=== PATIENT | male | born 2000 | race Hispanic/Latino ===

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

== ENCOUNTER 2021-02-04 01:02 | Inpatient (IN) | payer MEDICAID ==
[2021-02-04] VITALS (7 sets, daily range): BP systolic 100–135; BP diastolic 49–64
[~2021-02-04] VITALS: Ht 175.3 cm; Wt 75.1 kg
[2021-02-04] MEDS ORDERED: DiphenhydrAMINE HCL 50 MG/ML VIAL ONE (01:25)
[2021-02-04] MEDS ORDERED: FAMOTIDINE/PF 20 MG/2 ML VIAL IV ONE ×2 (01:26→08:39)
[2021-02-04] MEDS ORDERED: INSULIN HUMULIN R 100 UNIT/ML 3ML ONE ×2 (01:38→08:40)
[2021-02-04] MEDS ORDERED: SODIUM CHLORIDE 0.9% 1000ML 1,000 ML IV ONE ×3 (01:39→08:38)
[2021-02-04 01:46] LABS: BASOPHILS % (AUTO) 0.1 % (0.0-5.0); EOSINOPHILS % (AUTO) 0.5 % (0.0-8.0); HEMATOCRIT 49.3 % (42-54); LYMPHOCYTES % (AUTO) 62.3 % (21.0-51.0); MEAN CORPUSCULAR HEMOGLOBIN 30.4 pg (27.0-33.0); MEAN CORPUSCULAR HGB CONC 36.9 g/dL (32.0-36.0); MEAN CORPUSCULAR VOLUME 82.3 fL (80-100); MONOCYTES % (AUTO) 4.3 % (3.0-13.0); NEUTROPHILS % (AUTO) 32.4 % (40.0-77.0); PLATELET COUNT (AUTO) 356 K/uL (130-400); RED BLOOD CELL COUNT(AUTO) 5.99 MIL/uL (4.50-6.20); RED CELL DISTRIBUTION WIDTH 11.8 % (11.0-15.5); WHITE BLOOD COUNT (AUTO) 7.7 K/uL (4.8-10.8)
[2021-02-04 02:18] LABS: BAND NEUTROPHILS % (MANUAL) 2 % (0-2); EOSINOPHILS % (MANUAL) 2 % (1-6); LYMPHOCYTES % (MANUAL) 54 % (22-44); MAN.DIFF COMMENT-IMPRESSION MANUAL DIFFERENTIAL; MONOCYTES % (MANUAL) 4 % (2-9); PLATELET MORPHOLOGY COMMENT ADEQUATE; REACTIVE LYMPHOCYTES 4 % (0-0); SEGMENTED NEUTROPHILS % 34 % (40-70)
[2021-02-04 02:20] LABS: POTASSIUM 3.7 mmol/L (3.5-5.1)
[2021-02-04 02:21] LABS: CREATININE 1.2 mg/dL (0.5-1.5); PHOSPHORUS 5.8 mg/dL (2.5-4.9)
[2021-02-04 02:22] LABS: BILIRUBIN,TOTAL 0.7 mg/dL (0.2-1.0); MAGNESIUM 1.8 mg/dL (1.80-2.40); TOTAL PROTEIN, SERUM 6.6 g/dL (6.0-8.3)
[2021-02-04 02:23] LABS: ALBUMIN 4.2 g/dL (3.5-5.0)
[2021-02-04 02:45] LABS: APPEARANCE,URINE Clear (CLEAR); BILIRUBIN,URINE Negative (NEGATIVE); COLOR,URINE Yellow (YELLOW); GLUCOSE, URINE (UA) >=1000 mg/dL (NEGATIVE); KETONES,URINE >=80 mg/dL (NEGATIVE); LEUKOCYTE ESTERASE ,URINE Negative (NEGATIVE); NITRATE,URINE Negative (NEGATIVE); OCCULT BLOOD,URINE Negative (NEGATIVE); PROTEIN,URINE Negative (NEGATIVE); UROBILINOGEN,URINE 0.2 mg/dL (0.2-1.0)
[2021-02-04 02:51] LABS: BACTERIA,URINE None Seen /HPF (None Seen); RBC,URINE None Seen /HPF (0-1); SQUAMOUS EPITHELIAL CELL,UR Rare /HPF (0-2); WBC,URINE None Seen /HPF (0-1); YEAST,URINE BUDDING None Seen /HPF (None Seen)
[2021-02-04] MEDS ORDERED: GLUCAGON 1MG KIT 1 MG ML IM PRN (05:30)
[2021-02-04] MEDS ORDERED: DEXTROSE 50%-WATER 50 ML DISP.SYRIN IV PRN (05:30)
[2021-02-04 05:57] LABS: CREATININE 0.9 mg/dL (0.5-1.5); POTASSIUM 4.6 mmol/L (3.5-5.1)
[2021-02-04] MEDS ORDERED: ACETAMINOPHEN 325 MG TAB PO PRN (06:00)
[2021-02-04] MEDS: INSULIN HUMULIN R 100 UNIT/ML 3ML SQ SCH ×4 (06:00→23:14)
[2021-02-04] MEDS ORDERED: ACETAMINOPHEN-CODEINE 300/30MG TAB PO PRN (06:00)
[2021-02-04] MEDS ORDERED: ONDANSETRON HCL 4 MG/2 ML VIAL IV PRN (06:00)
[2021-02-04] MEDS ORDERED: MORPHINE SULFATE 4 MG/1ML SYG IV PRN (06:00)
[2021-02-04] MEDS ORDERED: LACTULOSE 20 GM/30 ML UDCUP PO PRN (06:00)
[2021-02-04] MEDS: SODIUM CHLORIDE 0.9% 1000ML 1,000 ML IV SCH ×6 (06:00→23:13)
[2021-02-04 07:14] LABS: ABG OXYGEN SATURATION 92.5 % (95.0-99.0); BASE EXCESS,VENOUS BLOOD GAS -5.3 (-2.0-3.0); PCO2,VENOUS BLOOD GAS 39 (35-48); PH,VENOUS BLOOD GAS 7.332 (7.350-7.450)
[2021-02-04 07:14] LABS: ABG OXYGEN SATURATION 92.9 % (95.0-99.0); HCO3,VENOUS BLOOD GAS 19.4 (21.0-28.0); PCO2,VENOUS BLOOD GAS 42 (35-48)
[2021-02-04] MEDS ORDERED: SODIUM CHLORIDE 0.9% 1000ML 1,000 ML IV SCH (08:15)
[2021-02-04] MEDS ORDERED: INSULIN HUMULIN R 100 UNIT/ML 3ML IV SCH (08:15)
[2021-02-04] MEDS ORDERED: POTASSIUM CHLORIDE 10MEQ/100ML 100 ML IV PRN (08:15)
[2021-02-04] MEDS ORDERED: DEXTROSE 5 %-0.45 % NACL 1,000 ML IV PRN (08:15)
[2021-02-04] MEDS ORDERED: ENOXAPARIN SODIUM 40 MG/0.4 ML SYRINGE SQ ONE (08:38)
[2021-02-04] MEDS: FAMOTIDINE/PF 20 MG/2 ML VIAL IV SCH ×2 (09:00→20:06)
[2021-02-04] MEDS: ENOXAPARIN SODIUM 40 MG/0.4 ML SYRINGE SQ SCH (09:00)
[2021-02-04 09:01] LABS: CREATININE 0.8 mg/dL (0.5-1.5); MAGNESIUM 1.6 mg/dL (1.80-2.40); POTASSIUM 3.9 mmol/L (3.5-5.1)
[2021-02-04] MEDS ORDERED: INSULIN REGULAR, HUMAN 3ML 100 UNIT in SODIUM CHLORIDE 0.9% 99 ML IV PRN ×2 (09:15)
[2021-02-04 09:42] LABS: ABG BASE EXCESS -9.5 mmol/L (-2.0-3.0); ABG HCO3 15.7 mmol/L (21.0-28.0); ABG OXYGEN SATURATION 96.3 % (95.0-99.0); ABG PCO2 33 mmHg (35-48)
[2021-02-04 10:45] LABS: HEMOGLOBIN A1C > 12.8 % (4.0-6.0)
[2021-02-04] MEDS ORDERED: DEXTROSE 5 %-0.45 % NACL 1,000 ML IV ONE (13:37)
[2021-02-04 14:21] LABS: ABG BASE EXCESS -7.7 mmol/L (-2.0-3.0); ABG PCO2 33 mmHg (35-48)
[2021-02-04 14:24] LABS: CREATININE 0.8 mg/dL (0.5-1.5); MAGNESIUM 1.6 mg/dL (1.80-2.40); POTASSIUM 3.6 mmol/L (3.5-5.1)
[2021-02-04] MEDS ORDERED: MAGNESIUM 2GM PREMIX 50ML 50 ML IV ONE (15:57)
[2021-02-04] MEDS ORDERED: SODIUM CHLORIDE 0.9% 50 ML IV ONE (15:57)
[2021-02-04] MEDS ORDERED: MAGNESIUM 2GM PREMIX 50ML 50 ML IV PRN (16:30)
[2021-02-04 16:32] LABS: AMYLASE 40 U/L (25-115)
[2021-02-04 16:33] LABS: LIPASE 31 U/L (114-286)
[2021-02-04] MEDS ORDERED: INSLAN SQ (18:36)
[2021-02-04] MEDS ORDERED: INSNOV SQ (18:36)
[2021-02-04] MEDS: DEXTROSE 5 %-0.45 % NACL 1,000 ML IV SCH ×2 (18:46→23:13)
[2021-02-04 19:47] LABS: MAGNESIUM 1.8 mg/dL (1.80-2.40); POTASSIUM 3.8 mmol/L (3.5-5.1)
[2021-02-04 20:28] LABS: ABG BASE EXCESS -7.4 mmol/L (-2.0-3.0); ABG HCO3 15.5 mmol/L (21.0-28.0); ABG OXYGEN SATURATION 97.9 % (95.0-99.0); ABG PCO2 26 mmHg (35-48)
[2021-02-04] MEDS ORDERED: INSULIN GLARGINE 100 UNITS/ML 10 ML VIAL SQ SCH (21:00)
[2021-02-05] VITALS (15 sets, daily range): BP systolic 93–138; BP diastolic 55–73
[2021-02-05 00:15] LABS: ABG OXYGEN SATURATION 74.3 % (95.0-99.0); BASE EXCESS,VENOUS BLOOD GAS -5.9 (-2.0-3.0); HCO3,VENOUS BLOOD GAS 18.8 (21.0-28.0); PCO2,VENOUS BLOOD GAS 35 (35-48); PH,VENOUS BLOOD GAS 7.349 (7.350-7.450)
[2021-02-05] MEDS: SODIUM CHLORIDE 0.9% 1000ML 1,000 ML IV SCH ×4 (02:00→11:10)
[2021-02-05 04:14] LABS: AMYLASE 42 U/L (25-115); CARBON DIOXIDE 23 mmol/L (21-32); CHLORIDE 103 mmol/L (101-111); CHOLESTEROL 201 mg/dL (<200); CREATININE 0.9 mg/dL (0.5-1.5); GLOMERULAR FILTR. RATE CALC 116 mL/min (>60); GLUCOSE,RANDOM 217 mg/dL (70-105); HDL CHOLESTEROL 30 mg/dL (29-71); LDL DIRECT 43 mg/dL (0-99); POTASSIUM 3.2 mmol/L (3.5-5.1); SODIUM SERUM 137 mmol/L (136-145); TRIGLYCERIDES 612 mg/dL (30-200); UREA NITROGEN, BLOOD 5 mg/dL (7-18)
[2021-02-05 04:18] LABS: LIPASE < 50 U/L (114-286)
[2021-02-05 04:25] LABS: BASE EXCESS,VENOUS BLOOD GAS -8.9 (-2.0-3.0); HCO3,VENOUS BLOOD GAS 15.8 (21.0-28.0); PCO2,VENOUS BLOOD GAS 31 (35-48)
[2021-02-05] MEDS: INSULIN HUMULIN R 100 UNIT/ML 3ML SQ SCH ×5 (05:40→21:13)
[2021-02-05] MEDS: FAMOTIDINE/PF 20 MG/2 ML VIAL IV SCH ×2 (07:31→20:55)
[2021-02-05] MEDS: DEXTROSE 5 %-0.45 % NACL 1,000 ML IV SCH (07:32)
[2021-02-05] MEDS: ENOXAPARIN SODIUM 40 MG/0.4 ML SYRINGE SQ SCH (07:32)
[2021-02-05] MEDS ORDERED: MAGNESIUM 2GM PREMIX 50ML 50 ML IV SCH (12:00)
[2021-02-05] MEDS: POTASSIUM CHLORIDE 20 MEQ ERTAB PO SCH (12:11)
[2021-02-05] MEDS ORDERED: INSULIN GLARGINE 100 UNITS/ML 10 ML VIAL SQ SCH (21:00)
[2021-02-05] MEDS ORDERED: ATORVASTATIN CALCIUM 40 MG TABLET PO SCH (21:00)
[2021-02-06 04:29] VITALS: BP 109/72
[2021-02-06] MEDS: INSULIN HUMULIN R 100 UNIT/ML 3ML SQ SCH ×4 (05:32→12:21)
[2021-02-06] MEDS: FAMOTIDINE/PF 20 MG/2 ML VIAL IV SCH (08:13)
[2021-02-06] MEDS: ENOXAPARIN SODIUM 40 MG/0.4 ML SYRINGE SQ SCH (08:18)
[2021-02-06 08:37] VITALS: BP 97/57
[2021-02-06] MEDS ORDERED: FENOFIBRATE NANOCRYSTALLIZED 145 MG TAB PO SCH (09:00)
[2021-02-06 09:18] LABS: BASOPHILS % (AUTO) 0.3 % (0.0-5.0); EOSINOPHILS % (AUTO) 1.4 % (0.0-8.0); HEMATOCRIT 48.1 % (42-54); LYMPHOCYTES % (AUTO) 46.2 % (21.0-51.0); MEAN CORPUSCULAR HEMOGLOBIN 29.1 pg (27.0-33.0); MEAN CORPUSCULAR HGB CONC 34.1 g/dL (32.0-36.0); MEAN CORPUSCULAR VOLUME 85.3 fL (80-100); MONOCYTES % (AUTO) 8.1 % (3.0-13.0); NEUTROPHILS % (AUTO) 43.7 % (40.0-77.0); PLATELET COUNT (AUTO) 194 K/uL (130-400); RED BLOOD CELL COUNT(AUTO) 5.64 MIL/uL (4.50-6.20); RED CELL DISTRIBUTION WIDTH 12.6 % (11.0-15.5); WHITE BLOOD COUNT (AUTO) 3.6 K/uL (4.8-10.8)
[2021-02-06 09:34] LABS: ALBUMIN 3.5 g/dL (3.5-5.0); BILIRUBIN,TOTAL 0.4 mg/dL (0.2-1.0); CREATININE 0.8 mg/dL (0.5-1.5); MAGNESIUM 1.8 mg/dL (1.80-2.40); POTASSIUM 3.8 mmol/L (3.5-5.1); TOTAL PROTEIN, SERUM 6.3 g/dL (6.0-8.3)
[2021-02-06 11:27] VITALS: BP 106/67
[2021-02-06] MEDS: POTASSIUM CHLORIDE 20 MEQ ERTAB PO SCH (12:00)
[2021-02-06] MEDS ORDERED: INSU100I3 SQ (13:50)
[2021-02-06] MEDS ORDERED: FENO145T PO (13:50)
[2021-02-06] MEDS ORDERED: ATOR40TA69 PO (13:50)
== END 2021-02-06 14:50 | disposition home or self-care (01) | DRG 420 ==
LOC: EDH 01:02 → EDHIP 05:47 → 2DH 17:12 → 3DH 02-05 12:50
PROVIDERS: ADMIT Internal Medicine; ATTEND Internal Medicine
DX: E10.10 Type 1 diabetes mellitus with ketoacidosis without coma (principal); E87.8 Other disorders of electrolyte and fluid balance, not elsewhere classified; E87.1 Hypo-osmolality and hyponatremia; E78.1 Pure hyperglyceridemia; J45.909 Unspecified asthma, uncomplicated; E86.0 Dehydration; E86.1 Hypovolemia; L27.2 Dermatitis due to ingested food; Z79.4 Long term (current) use of insulin
CPT/HCPCS: 36415; 36600; 80048; 80053; 80061; 81001; 82010; 82150; 82435; 82803; 82947; 82948; 83036; 83605; 83690; 83735; 84100; 84132; 84295; 84484; 85018; 85025; G0378; J1200; J1650; J1815; J3475; J3490; J7030; J7042

== ENCOUNTER 2021-06-07 06:31 | Emergency (ER) | payer BC, MEDICAID ==
[~2021-06-07] VITALS: Ht 177.8 cm; Wt 72.6 kg
[~2021-06-07 06:31] MED LIST: ATOR40TA69 PO; FENO145T PO; INSLAN SQ; INSU100I3 SQ
[2021-06-07 06:32] VITALS: BP 158/97
[2021-06-07 06:59] VITALS: BP 144/100
[2021-06-07] MEDS ORDERED: LACTATED RINGERS 1000ML 1,000 ML IV SCH ×3 (07:00→14:00)
[2021-06-07] MEDS ORDERED: INSULIN HUMULIN R 100 UNIT/ML 3ML IV SCH (07:09)
[2021-06-07 07:29] LABS: BASOPHILS % (AUTO) 0.2 % (0.0-5.0); EOSINOPHILS % (AUTO) 0.3 % (0.0-8.0); HEMATOCRIT 56.1 % (42-54); MEAN CORPUSCULAR HEMOGLOBIN 28.9 pg (27.0-33.0); MEAN CORPUSCULAR HGB CONC 35.3 g/dL (32.0-36.0); MONOCYTES % (AUTO) 4.9 % (3.0-13.0); NEUTROPHILS % (AUTO) 66.2 % (40.0-77.0); PLATELET COUNT (AUTO) 296 K/uL (130-400); RED BLOOD CELL COUNT(AUTO) 6.84 MIL/uL (4.50-6.20); RED CELL DISTRIBUTION WIDTH 11.9 % (11.0-15.5); WHITE BLOOD COUNT (AUTO) 8.9 K/uL (4.8-10.8)
[2021-06-07] MEDS ORDERED: PANTOPRAZOLE 40 MG/VIAL IVP SCH (07:30)
[2021-06-07] MEDS ORDERED: ONDANSETRON 4MG INJ IVP SCH (07:30)
[2021-06-07 07:58] LABS: ALANINE AMINOTRANSFERASE 22 U/L (12-78); ALBUMIN 4.7 g/dL (3.5-5.0); ASPARTATE AMINOTRANSFERASE 17 U/L (10-37); BILIRUBIN,TOTAL 0.9 mg/dL (0.2-1.0); CARBON DIOXIDE 16 mmol/L (21-32); CHLORIDE 91 mmol/L (101-111); CREATINE KINASE, TOTAL 45 U/L (21-232); CREATININE 1.3 mg/dL (0.5-1.5); GLOMERULAR FILTR. RATE CALC 76 mL/min (>60); GLUCOSE,RANDOM 324 mg/dL (70-105); POTASSIUM 4.1 mmol/L (3.5-5.1); SODIUM SERUM 133 mmol/L (136-145); THYROID STIMULATING HORMONE 1.09 uIU/mL (0.36-3.74); TOTAL PROTEIN, SERUM 8.6 g/dL (6.0-8.3); UREA NITROGEN, BLOOD 23 mg/dL (7-18)
[2021-06-07 08:00] LABS: LIPASE < 50 U/L (114-286)
[2021-06-07 08:28] VITALS: BP 120/78
[2021-06-07 08:43] LABS: ABG BASE EXCESS -5.6 mmol/L (-2.0-3.0); ABG HCO3 18.1 mmol/L (21.0-28.0); ABG OXYGEN SATURATION 97.5 % (95.0-99.0); ABG PCO2 31 mmHg (35-48)
[2021-06-07 10:41] VITALS: BP 100/47
[2021-06-07] MEDS ORDERED: FAMO40TA75 PO (11:11)
[2021-06-07 11:45] VITALS: BP 101/69
== END 2021-06-07 11:00 | disposition home or self-care (01) ==
LOC: EDH 06:31
DX: E10.65 Type 1 diabetes mellitus with hyperglycemia (principal); K29.00 Acute gastritis without bleeding; E86.0 Dehydration; E78.00 Pure hypercholesterolemia, unspecified; Z79.4 Long term (current) use of insulin; Z79.899 Other long term (current) drug therapy
CPT/HCPCS: 36415; 36600; 71045; 80053; 82550; 82803; 82948 ×4; 83690; 84443; 84484; 85025; 93005; 96374; 96375; 99285; C9113; J1815; J2405; J7120

== ENCOUNTER 2022-01-14 08:00 | Inpatient (IN) | payer BC, MEDICAID ==
[~2022-01-14] VITALS: Ht 177.8 cm; Wt 70.3 kg
[~2022-01-14 08:00] MED LIST changes: +FAMO40TA75 PO
[2022-01-14] MEDS: 0.9%NACL 1000ML 1,000 ML IV ONE ×2 (08:26→08:46)
[2022-01-14] MEDS ORDERED: 0.9%NACL 1000ML 2,000 ML IV SCH (08:30)
[2022-01-14 08:31] LABS: BASOPHILS % (AUTO) 0.6 % (0.0-5.0); EOSINOPHILS % (AUTO) 0.4 % (0.0-8.0); HEMATOCRIT 53.1 % (42-54); LYMPHOCYTES % (AUTO) 34.3 % (21.0-51.0); MEAN CORPUSCULAR HEMOGLOBIN 29.9 pg (27.0-33.0); MEAN CORPUSCULAR HGB CONC 35.6 g/dL (32.0-36.0); MONOCYTES % (AUTO) 2.2 % (3.0-13.0); NEUTROPHILS % (AUTO) 61.6 % (40.0-77.0); PLATELET COUNT (AUTO) 315 K/uL (130-400); RED BLOOD CELL COUNT(AUTO) 6.32 MIL/uL (4.50-6.20); RED CELL DISTRIBUTION WIDTH 12.2 % (11.0-15.5); WHITE BLOOD COUNT (AUTO) 10.4 K/uL (4.8-10.8)
[2022-01-14 08:32] LABS: ABG OXYGEN SATURATION 74.3 % (95.0-99.0); HCO3,VENOUS BLOOD GAS 7.9 (21.0-28.0); PCO2,VENOUS BLOOD GAS 29 (35-48); PH,VENOUS BLOOD GAS 7.061 (7.350-7.450)
[2022-01-14 09:19] LABS: BILIRUBIN,TOTAL 1.1 mg/dL (0.2-1.0); PHOSPHORUS 3.2 mg/dL (2.5-4.9); POTASSIUM 5.1 mmol/L (3.5-5.1); SODIUM SERUM 125 mmol/L (136-145); UREA NITROGEN, BLOOD 9 mg/dL (7-18)
[2022-01-14 09:27] LABS: CARBON DIOXIDE 7 mmol/L (21-32); CHLORIDE 90 mmol/L (101-111); GLUCOSE,RANDOM 436 mg/dL (70-105)
[2022-01-14] MEDS: INSULIN REGULAR, HUMAN 3ML 100 UNIT in 0.9%NACL 100ML 99 ML IV SCH ×2 (09:54)
[2022-01-14 10:04] LABS: ALBUMIN 4.8 g/dL (3.5-5.0); CREATININE 0.2 mg/dL (0.5-1.5); TOTAL PROTEIN, SERUM 8.9 g/dL (6.0-8.3)
[2022-01-14] MEDS ORDERED: MAGNESIUM 2GM PREMIX 50ML 50 ML IV ONE (10:23)
[2022-01-14] MEDS: 0.9%NACL 1000ML 1,000 ML IV SCH ×3 (10:30→20:10)
[2022-01-14] MEDS ORDERED: THIAMINE HCL 100 MG/ML 2ML VIAL IVP SCH (10:30)
[2022-01-14] MEDS ORDERED: PANTOPRAZOLE 40 MG/VIAL IVP SCH (10:30)
[2022-01-14] MEDS ORDERED: 0.9%NACL 1000ML 1,000 ML IV SCH (10:30)
[2022-01-14 10:35] LABS: GLOMERULAR FILTR. RATE CALC 649 mL/min (>60)
[2022-01-14 10:43] LABS: APPEARANCE,URINE Clear (CLEAR); BILIRUBIN,URINE Negative (NEGATIVE); COLOR,URINE Yellow (YELLOW); GLUCOSE, URINE (UA) >=1000 mg/dL (NEGATIVE); KETONES,URINE >=160 mg/dL (NEGATIVE); LEUKOCYTE ESTERASE ,URINE Negative (NEGATIVE); NITRATE,URINE Negative (NEGATIVE); OCCULT BLOOD,URINE Negative (NEGATIVE); PROTEIN,URINE POS 1+ mg/dL (NEGATIVE); UROBILINOGEN,URINE 0.2 mg/dL (0.2-1.0)
[2022-01-14 10:51] LABS: ASPARTATE AMINOTRANSFERASE 24 U/L (10-37)
[2022-01-14 11:00] LABS: CHOLESTEROL 411 mg/dL (<200); HDL CHOLESTEROL 38 mg/dL (29-71); LDL DIRECT 52 mg/dL (0-99)
[2022-01-14 11:14] LABS: BACTERIA,URINE Few /HPF (None Seen); RBC,URINE None Seen /HPF (0-1); SQUAMOUS EPITHELIAL CELL,UR 0-2 /HPF (0-2); WBC,URINE None Seen /HPF (0-1)
[2022-01-14 11:22] LABS: TRIGLYCERIDES 2956 mg/dL (30-200)
[2022-01-14 11:26] LABS: MAGNESIUM 4.3 mg/dL (1.80-2.40); POTASSIUM 3.7 mmol/L (3.5-5.1)
[2022-01-14 11:47] LABS: ABG OXYGEN SATURATION 92.4 % (95.0-99.0); BASE EXCESS,VENOUS BLOOD GAS -23.7 (-2.0-3.0); HCO3,VENOUS BLOOD GAS 4.6 (21.0-28.0); PCO2,VENOUS BLOOD GAS 17 (35-48); PH,VENOUS BLOOD GAS 7.061 (7.350-7.450)
[2022-01-14] MEDS ORDERED: SODIUM BICARB 50MEQ 50ML VIAL 150 ML ONE (12:03)
[2022-01-14 12:05] LABS: HEMOGLOBIN A1C 10.7 % (4.0-6.0)
[2022-01-14 12:16] LABS: ALANINE AMINOTRANSFERASE 39 U/L (12-78)
[2022-01-14] MEDS: DEXTROSE 5 %-0.45 % NACL 1,000 ML IV PRN (13:00)
[2022-01-14 13:20] LABS: CREATININE 0.4 mg/dL (0.5-1.5)
[2022-01-14 13:59] LABS: ABG OXYGEN SATURATION 95.8 % (95.0-99.0); BASE EXCESS,VENOUS BLOOD GAS -17.2 (-2.0-3.0); HCO3,VENOUS BLOOD GAS 8.2 (21.0-28.0); PCO2,VENOUS BLOOD GAS 21 (35-48); PH,VENOUS BLOOD GAS 7.218 (7.350-7.450)
[2022-01-14] MEDS ORDERED: SODIUM BICARB 50MEQ 50ML VIAL IV STA (14:00)
[2022-01-14 14:27] LABS: CREATININE 0.8 mg/dL (0.5-1.5); POTASSIUM 3.5 mmol/L (3.5-5.1)
[2022-01-14 14:35] LABS: AMPHET/METH SCREEN,URINE NEGATIVE (NEGATIVE); BARBITURATE SCREEN, URINE NEGATIVE (NEGATIVE); BENZODIAZEPINES SCREEN,URINE NEGATIVE (NEGATIVE); CANNABINOID SCREEN,URINE POSITIVE (NEGATIVE); COCAINE SCREEN,URINE NEGATIVE (NEGATIVE); OPIATE SCREEN,URINE NEGATIVE (NEGATIVE); PHENCYCLIDINE SCREEN,URINE NEGATIVE (NEGATIVE)
[2022-01-14] MEDS: CALCIUM CARB 500MG PO SCH ×3 (14:58→19:09)
[2022-01-14] MEDS ORDERED: KCL 20 MEQ ERTAB PO ONE ×2 (15:00→19:30)
[2022-01-14 17:08] LABS: ABG OXYGEN SATURATION 95.9 % (95.0-99.0); BASE EXCESS,VENOUS BLOOD GAS -15.9 (-2.0-3.0); HCO3,VENOUS BLOOD GAS 9.4 (21.0-28.0); PCO2,VENOUS BLOOD GAS 23 (35-48); PH,VENOUS BLOOD GAS 7.235 (7.350-7.450)
[2022-01-14 17:20] LABS: CREATININE 0.9 mg/dL (0.5-1.5); MAGNESIUM 1.8 mg/dL (1.80-2.40); POTASSIUM 3.4 mmol/L (3.5-5.1)
[2022-01-14] MEDS ORDERED: MAGNESIUM OXIDE 400 MG TABLET PO SCH (19:30)
[2022-01-14] MEDS: ATORVASTATIN 40 MG TABLET PO SCH (20:05)
[2022-01-14] MEDS: FISH OIL 1000 MG/CAP PO SCH (20:05)
[2022-01-14] MEDS ORDERED: INSULIN HUMULIN 70/30 100 UNIT/ML 3ML SQ SCH (21:00)
[2022-01-15] VITALS (15 sets, daily range): BP systolic 97–123; BP diastolic 54–77
[2022-01-15 00:38] LABS: CREATININE 0.9 mg/dL (0.5-1.5); MAGNESIUM 1.9 mg/dL (1.80-2.40); POTASSIUM 3.9 mmol/L (3.5-5.1)
[2022-01-15] MEDS: 0.9%NACL 1000ML 1,000 ML IV SCH ×4 (06:14→20:50)
[2022-01-15 07:39] LABS: ABG OXYGEN SATURATION 97.1 % (95.0-99.0); BASE EXCESS,VENOUS BLOOD GAS -10.8 (-2.0-3.0); HCO3,VENOUS BLOOD GAS 14.6 (21.0-28.0); PCO2,VENOUS BLOOD GAS 32 (35-48); PH,VENOUS BLOOD GAS 7.279 (7.350-7.450)
[2022-01-15 07:43] LABS: BASOPHILS % (AUTO) 0.3 % (0.0-5.0); HEMATOCRIT 41.4 % (42-54); MEAN CORPUSCULAR HEMOGLOBIN 29.4 pg (27.0-33.0); MEAN CORPUSCULAR HGB CONC 35.7 g/dL (32.0-36.0); MEAN CORPUSCULAR VOLUME 82.1 fL (80-100); MONOCYTES % (AUTO) 5.3 % (3.0-13.0); NEUTROPHILS % (AUTO) 40.1 % (40.0-77.0); PLATELET COUNT (AUTO) 172 K/uL (130-400); RED BLOOD CELL COUNT(AUTO) 5.04 MIL/uL (4.50-6.20); RED CELL DISTRIBUTION WIDTH 12.2 % (11.0-15.5)
[2022-01-15] MEDS ORDERED: POTASSIUM CHLORIDE 20MEQ/100ML 100 ML IV ONE (08:16)
[2022-01-15] MEDS ORDERED: LIDOCAINE HCL MPF 1% 5ML VIAL ONE (08:16)
[2022-01-15] MEDS: PANTOPRAZOLE 40 MG/VIAL IVP SCH (08:20)
[2022-01-15] MEDS: FISH OIL 1000 MG/CAP PO SCH ×2 (08:22→20:04)
[2022-01-15] MEDS: ENOXAPARIN SODIUM 40 MG/0.4 ML SYRINGE SQ SCH (08:22)
[2022-01-15] MEDS: MAGNESIUM 2GM PREMIX 50ML 50 ML IV SCH (08:23)
[2022-01-15 08:27] LABS: ALBUMIN 3.1 g/dL (3.5-5.0); BILIRUBIN,DIRECT 0.1 mg/dL (0.0-0.3); BILIRUBIN,TOTAL 0.8 mg/dL (0.2-1.0); CREATININE 0.8 mg/dL (0.5-1.5); MAGNESIUM 1.7 mg/dL (1.80-2.40); PHOSPHORUS 1.3 mg/dL (2.5-4.9); POTASSIUM 3.1 mmol/L (3.5-5.1); TOTAL PROTEIN, SERUM 5.6 g/dL (6.0-8.3)
[2022-01-15] MEDS: POTASSIUM CHLORIDE 10MEQ/100ML 100 ML IV PRN ×2 (09:00→15:13)
[2022-01-15] MEDS: CALCIUM CARB 500MG PO SCH ×2 (09:30→20:06)
[2022-01-15] MEDS: DEXTROSE 5 %-0.45 % NACL 1,000 ML IV PRN ×2 (14:30→22:36)
[2022-01-15 18:38] LABS: CREATININE 0.9 mg/dL (0.5-1.5); MAGNESIUM 1.8 mg/dL (1.80-2.40); POTASSIUM 3.3 mmol/L (3.5-5.1)
[2022-01-15] MEDS ORDERED: KCL 20 MEQ ERTAB PO ONE (19:45)
[2022-01-15] MEDS ORDERED: MAGNESIUM OXIDE 400 MG TABLET PO SCH (19:45)
[2022-01-15] MEDS: ATORVASTATIN 40 MG TABLET PO SCH (20:04)
[2022-01-15] MEDS: INSULIN REGULAR, HUMAN 3ML 100 UNIT in 0.9%NACL 100ML 99 ML IV SCH ×2 (23:03)
[2022-01-16] VITALS (14 sets, daily range): BP systolic 101–119; BP diastolic 56–73
[2022-01-16] MEDS: 0.9%NACL 1000ML 1,000 ML IV SCH ×5 (02:17→21:58)
[2022-01-16 03:44] LABS: BASOPHILS % (AUTO) 0.2 % (0.0-5.0); EOSINOPHILS % (AUTO) 1.7 % (0.0-8.0); LYMPHOCYTES % (AUTO) 44.6 % (21.0-51.0); MEAN CORPUSCULAR HEMOGLOBIN 29.8 pg (27.0-33.0); MEAN CORPUSCULAR HGB CONC 36.7 g/dL (32.0-36.0); MEAN CORPUSCULAR VOLUME 81.1 fL (80-100); MONOCYTES % (AUTO) 5.6 % (3.0-13.0); NEUTROPHILS % (AUTO) 47.7 % (40.0-77.0); PLATELET COUNT (AUTO) 201 K/uL (130-400); RED CELL DISTRIBUTION WIDTH 12.5 % (11.0-15.5); WHITE BLOOD COUNT (AUTO) 4.1 K/uL (4.8-10.8)
[2022-01-16 04:13] LABS: ALBUMIN 3.4 g/dL (3.5-5.0); BILIRUBIN,TOTAL 0.6 mg/dL (0.2-1.0); CREATININE 0.6 mg/dL (0.5-1.5); MAGNESIUM 1.9 mg/dL (1.80-2.40); TOTAL PROTEIN, SERUM 6.2 g/dL (6.0-8.3)
[2022-01-16] MEDS ORDERED: POTASSIUM CHLORIDE 10% ELIXIR 20 MEQ/15 ML UDCUP PO PRN (05:00)
[2022-01-16] MEDS ORDERED: LIDOCAINE HCL-MPF 1% 2ML VIAL IV PRN (05:00)
[2022-01-16] MEDS ORDERED: POTASSIUM CHLORIDE 20MEQ/100ML 100 ML IV PRN (05:00)
[2022-01-16 05:06] LABS: ABG BASE EXCESS -3.7 mmol/L (-2.0-3.0); ABG HCO3 18.5 mmol/L (21.0-28.0); ABG OXYGEN SATURATION 98.5 % (95.0-99.0); ABG PCO2 27 mmHg (35-48)
[2022-01-16] MEDS: KCL 20 MEQ ERTAB PO PRN ×4 (06:08→20:54)
[2022-01-16] MEDS: ENOXAPARIN SODIUM 40 MG/0.4 ML SYRINGE SQ SCH (09:09)
[2022-01-16] MEDS: PANTOPRAZOLE 40 MG/VIAL IVP SCH (09:09)
[2022-01-16] MEDS: FISH OIL 1000 MG/CAP PO SCH ×2 (09:17→20:51)
[2022-01-16] MEDS: CALCIUM CARB 500MG PO SCH ×2 (09:17→20:51)
[2022-01-16] MEDS ORDERED: INSULIN GLARGINE 100 UNITS/ML 10 ML VIAL SQ ONE (12:30)
[2022-01-16] MEDS ORDERED: INSULIN HUMULIN R 100 UNIT/ML 3ML SQ SCH (17:00)
[2022-01-16] MEDS: ATORVASTATIN 40 MG TABLET PO SCH (20:51)
[2022-01-16] MEDS ORDERED: INSULIN HUMULIN R 100 UNIT/ML 3ML ONE (22:24)
[2022-01-17] MEDS: 0.9%NACL 1000ML 1,000 ML IV SCH ×3 (02:37→13:30)
[2022-01-17 05:13] LABS: BASOPHILS % (AUTO) 0.3 % (0.0-5.0); HEMATOCRIT 44.2 % (42-54); LYMPHOCYTES % (AUTO) 45.9 % (21.0-51.0); MEAN CORPUSCULAR HEMOGLOBIN 28.9 pg (27.0-33.0); MEAN CORPUSCULAR HGB CONC 34.8 g/dL (32.0-36.0); MEAN CORPUSCULAR VOLUME 83.1 fL (80-100); MONOCYTES % (AUTO) 7.8 % (3.0-13.0); PLATELET COUNT (AUTO) 196 K/uL (130-400); RED BLOOD CELL COUNT(AUTO) 5.32 MIL/uL (4.50-6.20); RED CELL DISTRIBUTION WIDTH 12.7 % (11.0-15.5); WHITE BLOOD COUNT (AUTO) 3.9 K/uL (4.8-10.8)
[2022-01-17 06:07] LABS: ALBUMIN 3.4 g/dL (3.5-5.0); BILIRUBIN,TOTAL 0.8 mg/dL (0.2-1.0); CREATININE 0.6 mg/dL (0.5-1.5); POTASSIUM 3.2 mmol/L (3.5-5.1); TOTAL PROTEIN, SERUM 6.1 g/dL (6.0-8.3)
[2022-01-17 06:12] VITALS: BP 111/71
[2022-01-17] MEDS: KCL 20 MEQ ERTAB PO PRN ×3 (06:22→12:44)
[2022-01-17] MEDS: INSULIN HUMULIN R 100 UNIT/ML 3ML SQ SCH ×6 (06:23→17:03)
[2022-01-17 06:26] LABS: MAGNESIUM 1.4 mg/dL (1.80-2.40)
[2022-01-17] MEDS: MAGNESIUM 2GM PREMIX 50ML 50 ML IV SCH (06:33)
[2022-01-17] MEDS ORDERED: INSULIN GLARGINE 100 UNITS/ML 10 ML VIAL SQ SCH (07:00)
[2022-01-17 07:35] VITALS: BP 114/80
[2022-01-17] MEDS: FISH OIL 1000 MG/CAP PO SCH (08:34)
[2022-01-17] MEDS: CALCIUM CARB 500MG PO SCH (08:34)
[2022-01-17] MEDS: PANTOPRAZOLE 40 MG/VIAL IVP SCH (08:34)
[2022-01-17] MEDS: ENOXAPARIN SODIUM 40 MG/0.4 ML SYRINGE SQ SCH (08:35)
[2022-01-17 11:30] VITALS: BP 106/65
[2022-01-17 15:35] VITALS: BP_SYST 107; BP_SYST 110; BP_DIAS 63; BP_DIAS 65
== END 2022-01-17 17:40 | disposition home or self-care (01) | DRG 638 ==
LOC: EDH 08:00 → EDHIP 10:29 → 2CH 01-15 12:26 → 3BH 01-16 16:48
PROVIDERS: ADMIT Internal Medicine; ATTEND Internal Medicine
DX: E10.10 Type 1 diabetes mellitus with ketoacidosis without coma (principal); E87.1 Hypo-osmolality and hyponatremia; N17.9 Acute kidney failure, unspecified; E86.1 Hypovolemia; E86.0 Dehydration; E78.1 Pure hyperglyceridemia; E78.5 Hyperlipidemia, unspecified; E83.41 Hypermagnesemia; R00.0 Tachycardia, unspecified; E87.6 Hypokalemia; F12.90 Cannabis use, unspecified, uncomplicated; Z79.4 Long term (current) use of insulin; Z83.3 Family history of diabetes mellitus; Z91.14 Patient's other noncompliance with medication regimen
CPT/HCPCS: 36415; 36600; 71045; 76705; 80048; 80053; 80061; 80076; 80305; 81001; 82010; 82435; 82550; 82803; 82947; 82948; 83036; 83605; 83690; 83735; 84100; 84132; 84145; 84295; 84443; 85025; 85651; 87635; 87804; 93005; C9113; G0378; J1650; J1815; J3411; J3475; J3480; J3490; J7030; J7042